=== PATIENT | female | born 1950 | race Caucasian/White ===

== ENCOUNTER 2024-05-01 10:50 | Day surgery (SDC) | payer MEDICARE, SELFPAY ==
[2024-05-01] VITALS (13 sets, daily range): BP systolic 110–158; BP diastolic 48–74; PULSE 48–60; RESP 14–22; TEMP 36.3–36.6; O2SAT 93–99; BMI 31.0
[2024-05-01 10:47] LABS: Basophils # (Auto) 0.1 Thou/mm3 (0.0-0.2); Basophils % (Auto) 1 % (0-2.5); Eosinophils # (Auto) 0.6 Thou/mm3 (0.0-0.5); Eosinophils % (Auto) 6 % (0-10); Hematocrit 41.3 % (36.0-46.0); Hemoglobin 13.5 g/dL (12.0-16.0); Immature Granulocytes % (Auto) 1 % (0-0); Immature Granulocytes Auto 0.05 Thou/mm3 (0.00-0.00); Lymphocytes # (Auto) 2.4 Thou/mm3 (1.0-4.8); Lymphocytes % (Auto) 23 % (10-50); Mean Corpuscular HGB Conc 32.7 g/dl (31.0-37.0); Mean Corpuscular Hemoglobin 29.2 pg (25.0-35.0); Mean Corpuscular Volume 89 fL (80-100); Monocytes % (Auto) 9 % (0-12); Neutrophils # (Auto) 6.5 Thou/mm3 (1.8-7.7); Neutrophils % (Auto) 61 % (37-80); Nucleated Red Blood Cell % 0 /100 WBC (0); Platelet Count 315 Thou/mm3 (140-440); RDW Standard Deviation 55.6 fL (36.4-46.3); Red Blood Count 4.63 Miln/mm3 (4.00-5.20); White Blood Count 10.7 Thou/mm3 (3.6-11.0)
[2024-05-01 11:01] LABS: Partial Thromboplastin Time 25.4 Seconds (22.0-36.0); Prothrombin Time 10.6 Seconds (9.0-12.2)
[2024-05-01 11:03] LABS: Anion Gap 7 (7-16); BUN/Creatinine Ratio 29 Ratio (12-20); Blood Urea Nitrogen 35 mg/dL (9-23); Calcium 9.8 mg/dL (8.3-10.6); Carbon Dioxide 28.7 mMol/L (20.0-31.0); Chloride 101 mMol/L (98-107); Creatinine (Component) 1.2 mg/dL (0.6-1.3); Estimated Creatinine Clearance 39.5 mL/min (>60); Glucose 115 mg/dL (74-106); Osmolality,Calculated 282 (275-295); Potassium 4.6 mMol/L (3.4-5.1); Sodium 137 mMol/L (136-145); eGFR 48 See Note
--- NOTE | 2024-05-01 13:56 | XR_ITS ---
Examination: AP chest single view TECHNIQUE: AP semiupright portable chest single view Exam date and time: May 01, 2024 1411 hours INDICATIONS: Post pacemaker insertion FINDINGS: Prominence left ventricle Cardiac leads satisfactory position No pneumothorax Mild prominent central pulmonary vasculature IMPRESSION: Cardiac leads satisfactory position
[2024-05-01] MEDS: VANCOMYCIN/NS 1 GM IVPB 200 ML IV (14:52)
--- NOTE | 2024-05-03 19:49 | ESOP_ITS ---
RE: TYREL NEFF : 1950 DATE OF OPERATION: 05/01/2024 PRIMARY IMPLANTING SURGEON: KELSEY GREEN MD ECONOMICS FACULTY MEMBER: Brian Palma MD OPERATIONS PERFORMED: 1. Implantation of multi-lead cardiac resynchronization therapy defibrillator (CREDIT COMPLIANCE OFFICER-D) implantation. [address]00 2. Placement of left ventricular lead in lateral cardiac vein, CPT code 17711 3. Conscious sedation, one-hour duration. DIAGNOSES: Nonischemic cardiomyopathy, chronic systolic heart failure, NYHA functional class II, left ventricular ejection fraction is 25%, high risk for sudden cardiac , and left bundle branch block. HISTORY AND INDICATIONS: The patient is a 74-year-old female with history of new onset congestive heart failure, diagnosed in 07/2023, about nine months ago, hospitalized with congestive heart failure and found to have normal coronary arteries by angiogram, ejection fraction of 20% at that time with maximum medical management, beta-rama, ARB, and diuretic spironolactone. Ejection fraction remained at 25% after nine months of maximum medical management, guideline-directed medical therapy. The patient remains symptomatic, congestive heart failure with _ NYHA functional class III symptoms and because of left bundle branch block, the patient met criteria for cardiac resynchronized therapy and because of high risk for sudden cardiac , CREDIT COMPLIANCE OFFICER-D cardiac resynchronization therapy defibrillator implantation recommended. Left ventricular lead placement is recommended. _ Class I indication for CREDIT COMPLIANCE OFFICER-D implantation as well as left ventricular lead placement. DESCRIPTION OF PROCEDURE: The patient was brought to cardiac catheterization laboratory. She was given a total of 2 mg Versed and 100 mcg of fentanyl. Left subclavian area was prepared in sterile fashion and given 1% Xylocaine as local anesthesia. Left subclavian vein was cannulated by micropuncture technique and three guidewires were placed. A linear incision was made with blunt dissection, pocket was created. Hemostasis was secured. Subsequently, 7-[place] sheath introduced 7-[place] [facility] high voltage right ventricular lead as advanced into right ventricular apex. Excellent thresholds were obtained. After obtaining satisfactory threshold, we proceeded with left ventricular lead placement. Coronary sinus was selective cannulated using AL1 diagnostic catheter and sheath was introduced. Coronary SINUS angiogram showed evidence of multiple branches, small tortuous LATERAL _ cardiac vein. Left ventricular lead by [facility] LV lead was placed in the lateral cardiac vein using 0.014 run-through guidewire. Threshold was found to be excellent. After obtaining satisfactory threshold, atrial lead was advanced, 6-[place] sheath and right atrial appendage was used to place atrial lead _ threshold was found to be excellent. After obtaining satisfactory threshold, atrial and ventricular leads secured to pectoral fascia with 2-0 silk suture The peel-away sheathwas peeled away and left ventricular lead was sutured to the pectoralis fascia with 2-0 silk suture. All the three leads were then attached to the CREDIT COMPLIANCE OFFICER defibrillator generator. Pacemaker pocket was cleaned with antibiotic solution. The generator was placed into the pocket and secured to the pectoralis fascia with 2-0 silk suture. Subcutaneous tissue was closed using 2-0 chromic continuous sutures. Skin was closed with lorraine. The patient tolerated the procedure very well. No complications. Chest x-ray showed no pneumothorax. The patient was given antibiotic, 1 g Ancef before the procedure and 1 g of vancomycin post procedure. The details of the device are as follows: The device that is implanted is CREDIT COMPLIANCE OFFICER-D [place] [facility] Failure. Serial number is [id number], manufactured by [employer] The ventricle lead is is Durata [id number]. Serial number is [id number]. The left ventricular lead is [id number]. Serial number is [id number]. Atrial lead is Tendril [id number]. Serial number is [id number]. The threshold 1.5v_ atrial threshold, P waves are measured to be 1.6 millivolts and threshold is 1.5 volt and lead impairment is 400 ohms. Right ventricle high voltage lead threshold is 0.75 volts, R-wave is 8.6, the lead _, left ventricular LV lead threshold is 0.5 volts, excellent, and lead resistance 830, the high voltage impedance 71 ohms. The device is programmed to DDDR rate of 60, lower rate 60, upper sensor rate 120, the zones for ventricular tachyarrhythmia management, VT1 zone 150 monitor only 170_ VT2 zone and VF zone is 187. SUMMARY: Successful implantation of dual chamber multi-lead 3 lead CREDIT COMPLIANCE OFFICER-D implantation and successful placement of left ventricular lead in lateral cardiac vein. COMPLICATIONS: None. ESTIMATED BLOOD LOSS: Less than 10 mL. cc: Brian Palma MD DT: 17:48:41 TT: 19:30:00 Ref: [id number] - TID: [id number] MTDD
== END 2024-05-01 17:01 | disposition home or self-care (01) ==
LOC: SIRX 10:50 → SCCL 10:50
PROVIDERS: Internal Medicine Cardiovascular Disease; PCP Family Medicine; Referring Provider Internal Medicine Cardiovascular Disease; Visit Provider Internal Medicine Cardiovascular Disease
PROC: 0JH608Z Insertion of Defibrillator Generator into Chest Subcutaneous Tissue and Fascia, Open Approach (ICD-10-PCS; CPT 33249; principal; 2024-05-01 11:30)
DX: I42.8 Other cardiomyopathies (principal); I44.7 Left bundle-branch block, unspecified; I50.22 Chronic systolic (congestive) heart failure; I47.29 Other ventricular tachycardia
CPT/HCPCS: 33249; 33225; 36415; 80048; 85025; 85610; 85730; 99152; 99153; A4565; A4649; C1769; C1777; C1887; C1894; C1898; C1900; J0171; J0461; J0690; J1643; J2250; J2310; J2371; J3010; J3370; J3490; Q9967; J1644

== ENCOUNTER → 2025-02-20 | Outpatient (CLI) | payer OTHER, SELFPAY ==
[2025-02-20 10:25] LABS: Basophils # (Auto) 0.1 Thou/mm3 (0.0-0.2); Basophils % (Auto) 1 % (0-2.5); Eosinophils # (Auto) 0.6 Thou/mm3 (0.0-0.5); Eosinophils % (Auto) 5 % (0-10); Hematocrit 38.9 % (36.0-46.0); Hemoglobin 12.1 g/dL (12.0-16.0); Immature Granulocytes Auto 0.06 Thou/mm3 (0.00-0.00); Lymphocytes # (Auto) 2.4 Thou/mm3 (1.0-4.8); Lymphocytes % (Auto) 20 % (10-50); Mean Corpuscular HGB Conc 31.1 g/dl (31.0-37.0); Mean Corpuscular Hemoglobin 25.6 pg (25.0-35.0); Mean Corpuscular Volume 82 fL (80-100); Monocytes # (Auto) 0.9 Thou/mm3 (0.0-0.8); Monocytes % (Auto) 8 % (0-12); Neutrophils # (Auto) 8.0 Thou/mm3 (1.8-7.7); Neutrophils % (Auto) 66 % (37-80); Nucleated Red Blood Cell # 0.00 Thou/mm3 (0.00-0.00); Nucleated Red Blood Cell % 0 /100 WBC (0); Platelet Count 381 Thou/mm3 (140-440); RDW Standard Deviation 51.1 fL (36.4-46.3); Red Blood Count 4.72 Miln/mm3 (4.00-5.20); White Blood Count 12.0 Thou/mm3 (3.6-11.0)
[2025-02-20 10:34] LABS: Glucose Estimated Average 134 mg/dL (80-131); Hemoglobin A1C 6.3 % Hgb (4.8-6.0)
[2025-02-20 10:57] LABS: Alanine Aminotransferase 21 U/L (10-49); Albumin, Serum 4.4 gm/dL (3.4-4.8); Albumin/Globulin Ratio 1.4 (1.2-2.2); Alkaline Phosphatase 110 U/L (46-116); Anion Gap 12 (7-16); Aspartate Amino Transferase 21 U/L (0-34); BUN/Creatinine Ratio 15 Ratio (12-20); Bilirubin,Total 0.2 mg/dL (0.3-1.2); Blood Urea Nitrogen 19 mg/dL (9-23); Calcium 9.9 mg/dL (8.3-10.6); Calcium (Corrected) 9.9 mg/dL (8.5-10.1); Carbon Dioxide 27.2 mMol/L (20.0-31.0); Cardiac Risk Estimate 3.6 RATIO (3.7-5.6); Chloride 103 mMol/L (98-107); Cholesterol 223 mg/dL (132-200); Creatinine (Component) 1.3 mg/dL (0.6-1.3); Free T4 (Free Thyroxine) 1.21 ng/dL (0.89-1.76); Globulin 3.2 gm/dL (2.3-3.5); Glucose 114 mg/dL (74-106); HDL Cholesterol 62 mg/dL (40-60); LDL Cholesterol,Calculated 96 mg/dL (0-130); Osmolality,Calculated 286 (275-295); Potassium 5.0 mMol/L (3.4-5.1); Sodium 142 mMol/L (136-145); Thyroid Stimulating Hormone 9.82 uIU/mL (0.55-4.78); Total Protein 7.6 gm/dL (5.7-8.2); Triglycerides 325 mg/dL (30-150); eGFR 43 See Note
[2025-02-20 11:10] LABS: Collection Type, Urine Clean Catch
[2025-02-20 11:37] LABS: Bilirubin,Urine Negative (Negative); Blood,Urine Negative (Negative); Clarity,Urine Clear (Clear/Hazy); Color,Urine Colorless (Lt Yel-Yel); Glucose, Urine Negative (Negative); Hyaline Casts,Urine < 1 /hpf (0-1); Ketones,Urine Negative (Negative); Leukocyte Esterase,Urine Negative (Negative); Nitrite,Urine Negative (Negative); PH,Urine 6.0 (5.0-7.0); Protein,Urine Negative (Neg - Trace); RBC,Urine 1 /hpf (0-3); Specific Gravity,Urine 1.009 (1.001-1.035); Squamous Epithelial Cell,Urine 1 /hpf (0-5); Urobilinogen,Urine Negative mg/dL (0.0-1.0); WBC,Urine 1 /hpf (0-5)
[2025-02-20 11:45] LABS: Creatinine MALB Rnd Ur 32 mg/dL (30-125); Microalbumin Creat Ratio 22 mg/gCrea (<30); Microalbumin, Random Urine 7 mg/L (0-300)
== END | disposition home or self-care (01) ==
LOC: COPL 09:54
PROVIDERS: PCP Family Medicine; Referring Provider Family Medicine; Visit Provider Internal Medicine Cardiovascular Disease
DX: Z00.00 Encounter for general adult medical examination without abnormal findings (principal); I50.9 Heart failure, unspecified; R73.03 Prediabetes; I25.10 Atherosclerotic heart disease of native coronary artery without angina pectoris; E78.2 Mixed hyperlipidemia
CPT/HCPCS: 36415; 80053; 80061; 81001; 82043; 82570; 83036; 84439; 84443; 85025

== ENCOUNTER → 2025-03-20 | Outpatient (CLI) | payer OTHER, SELFPAY ==
--- NOTE | 2025-03-20 12:40 | XR_ITS ---
Examination: Bone densitometry Date and time of exam: March 20, 2025, 1309 hours INDICATIONS: Hysterectomy age 33, smoking history Technique: Lumbar spine and hip total bone mineralization values of an calculated. Peak reference and age match control results have been displayed. Findings: Lumbar spine total bone mineralization is 1.910 gm/cm2. This is 1.2 standard deviations below peak reference. This is 1.2 standard deviations above age-matched controls. Hip total bone mineralization is 0.830 gm/cm2 This is 0.9 standard deviations below peak reference. This is 0.9 standard deviations above age-matched controls Impression: There is osteopenia based on lumbar spine measurements. There is osteopenia based on hip measurements
--- NOTE | 2025-03-20 13:00 | XR_ITS ---
Examination: Screening digital mammography, bilateral Computer aided detection 3-D breast Tomosynthesis, bilateral Date and time of exam: 03/20/2025, 12:51 a.m. Comparisons: None available. If prior mammograms can be obtained recommend comparison with today's exam Indications: Screening Technique: Nonmagnified MLO, CC views of the breasts to been obtained, reconstructed from 3-D Tomosynthesis images. R2 computer aided detection program utilized for evaluation of suspicious masses and/or abnormal calcifications. 3-D Tomosynthesis images obtained. Technologist: Findings: There are scattered areas of fibroglandular density. No evidence of abnormal masses or suspicious calcifications. Impression: BI-RADS category 1: Negative findings (within normal) Recommend 1 year follow-up mammogram
== END | disposition home or self-care (01) ==
PROVIDERS: PCP Family Medicine; Referring Provider Family Medicine; Visit Provider Family Medicine
DX: Z12.31 Encounter for screening mammogram for malignant neoplasm of breast (principal); R92.313 Mammographic fatty tissue density, bilateral breasts; M85.89 Other specified disorders of bone density and structure, multiple sites
CPT/HCPCS: 77063; 77067; 77080